=== PATIENT | female | born 1990 | race Two or more races ===

== ENCOUNTER 2019-03-16 08:11 | Emergency (ER) | payer SELFPAY ==
--- NOTE | 2019-03-16 08:29 | ED ---
Lower Extremity - HPI Summary HPI Summary: Patient is a 28-year-old female who presents to the emergency department for a right ankle injury that occurred just prior to arrival. Patient states she was walking on the steps when she tripped and inverted right ankle. She did strike her left elbow is not having pain. Denies head injury or loss of consciousness. Symptoms are mild in severity. Walking makes symptoms worse. Rest makes symptoms better. - History of Current Complaint Chief Complaint: EDExtremityLower Stated Complaint: RIGHT ANKLE INJURY PER PT Time Seen by Provider: 03/16/19 08:14 Hx Obtained From: Patient Pain Intensity: 7 - Allergies/Home Medications Allergies/Adverse Reactions: Allergies Allergy/AdvReac Type Severity Reaction Status Date / Time No Known Allergies Allergy Verified 03/16/19 08:15 PMH/Surg Hx/FS Hx/Imm Hx Previously Healthy: Yes Infectious Disease History: No Infectious Disease History: Denies: Traveled Outside the [place] in Last 30 Days - Family History Known Family History: Positive: Non-Contributory - Social History Occupation: Student Lives: With Family Review of Systems Positive: Other - right ankle pain and swelling Skin: Negative Neurological: Negative Negative: Weakness, Paresthesia, Numbness All Other Systems Reviewed And Are Negative: Yes Physical Exam Triage Information Reviewed: Yes Vital Signs On Initial Exam: Initial Vitals Temp Pulse Resp BP Pulse Ox 98.4 F 88 16 137/92 99 03/16/19 08:12 03/16/19 08:12 03/16/19 08:12 03/16/19 08:12 03/16/19 08:12 Vital Signs Reviewed: Yes Appearance: Positive: Well-Appearing - Pt. sitting on bed in NAD. Friend present. Skin: Positive: Warm, Dry Head/Face: Positive: Normal Head/Face Inspection Eyes: Positive: Normal, EOMI Musculoskeletal: Positive: Other - Moderate edema to right later ankle with pain. Achilles tendon intact. Good radial pulse. No pain to base of 5th metatarsal. No proximal tib/fib or knee pain. Neurological: Positive: Normal, CN Intact II-III Psychiatric: Positive: Affect/Mood Appropriate Procedures - Splinting Right Lower Extremity Pre-Made Type: aircast Pre-Proc Neuro Vasc Exam: normal Post-Proc Neuro Vasc Exam: normal Splint Applied by Provider: Monique aHrdy - Vital Signs Vital Signs Temp Pulse Resp BP Pulse Ox 03/16/19 08:12 98.4 F 88 16 137/92 99 - Laboratory Lab Statement: Any lab studies that have been ordered have been reviewed, and results considered in the medical decision making process. Lower Extremity Course/Dx - Course Course Of Treatment: Patient presenting with right ankle injury. X-ray shows soft tissue edema without facture dislocation, reading per radiology. Patient given a dose of ibuprofen for pain. Patient placed in Kevin wrap and air splint and crutches. Advised to ice and elevate intermittently. Anti-inflammatories for pain as directed. Advised patient to follow up with orthopedics if significant amount of edema persist. Patient understands and agrees with plan. - Diagnoses Differential Diagnosis/HQI/PQRI: Positive: Fracture (Closed), Sprain, Strain Provider Diagnoses: Ankle sprain Discharge ED - Sign-Out/Discharge Documenting (check all that apply): Patient Departure Patient Received Moderate/Deep Sedation with Procedure: No - Discharge Plan Condition: Good Disposition: HOME Patient Education Materials: Ankle Sprain (ED) Referrals: Manju Rodriguez MD [Medical Doctor] - Additional Instructions: Schedule a follow up appointment with orthopedics if swelling and pain persist Ice and elevate Ibuprofen for pain as directed Wear splint for comfort Return to ER if symptoms change or worsen - Billing Disposition and Condition Condition: GOOD Disposition: Home
[2019-03-16] MEDS ORDERED: Ibuprofen TAB* 600 MG PO ONE (08:48)
[2019-03-16 09:46] VITALS: BP 127/81
== END 2019-03-16 09:42 | disposition home or self-care (01) ==
LOC: ED 08:11
DX: S93.401A Sprain of unspecified ligament of right ankle, initial encounter (principal); X50.1XXA Overexertion from prolonged static or awkward postures, initial encounter; Y92.89 Other specified places as the place of occurrence of the external cause
CPT/HCPCS: 99282; A9270-GY